=== PATIENT | female | born 1945 | race Caucasian/White ===

== ENCOUNTER 2017-05-16 18:20 | Emergency (ER) | payer BC, OTHER ==
[2017-05-16 18:32] VITALS: BP 145/96; BMI 30.7
--- NOTE | 2017-05-16 18:48 | DR.GENAD ---
HPI - PCP Primary Care Physician: ESSENCE - HPI Comment HPI Comment: PATIENT IS HAVING HEADACHE, VOMITED TIMES ONE IN ED AND HAVING NECK AND PELVIS PAIN. - Complaint/Symptoms Chief Complaint Doctors Comments: HISTORY BELOW. NO LOC. Chief Complaint:: PATIENT WAS AT [employer] AND WENT TO OPEN HER CAR DOOR BUT IT WAS ALREADY OPEN AND LOST HER BALANCE AND FELL AND HIT THE BACK OF HER HEAD. PATIENT IS COMPLAINING OF HEAD AND NECK PAIN. - Nurses notes reviewed Nurses Notes Review: Yes - Source History Provided: Patient - Mode of Arrival Mode of Arrival: EMS - Timing Onset of Chief Complaint: 05/16/17 Came on: Suddenly - Duration Duration: Constant Duration: Days - Severity Severity: Moderate PMH - PMH Past Medical History: Yes Past Medical History: CVA, Diabetes, Dyslipidemia Past Surgical History: Yes Surgical History: Hysterectomy - Family History History of Family Medical Conditions: No - Social History Does patient currently use any type of tobacco product: No Have you used tobacco products in the last 12 months: No Type of Tobacco Use: None Does any household member use tobacco: No Alcohol Use: None Do you use any recreational Drugs:: No Lives With: Family Lives Where: Home - infectious screening In the last 2 months have you had wt loss of >10#?: NO Have you had fever, night sweats or hemotysis?: No Have you traveled outside the country in the last 6 months?: No Isolation: Standard ROS - Review of Systems Constitutional: No Symptoms Reported Eyes: No Symptoms Reported ENTM: No Symptoms Reported Respiratoy: No Symptoms Reported Cardiovascular: No Symptoms Reported Gastrointestinal/Abdominal: No Symptoms Reported Genitourinary: No Symptoms Reported Neurological: Headache Musculoskeletal: Neck Pain, Pelvis Integumentary: No Symptoms Reported Hematologic/Lymphatic: No Symptoms Reported Endocrine: No Symptoms Reported All Other Systems: Reviewed and Negative PE - Vital Signs Vitals: Pulse Rate 72 Respiratory Rate 20 Blood Pressure 145/96 O2 Sat by Pulse Oximetry 100 - General Limitations: No Limitations General Appearance: Alert - Head Head Exam: Normal Inspection - Eyes Eye exam: Normal Appearance - ENT ENT Exam: Normal External Ear Exam External Ear Exam: Normal External Inspection Nose Exam: Normal Nose Exam Mouth Exam: Normal Inspection Throat Exam: Normal Inspection - Neck Neck Exam: Normal Inspection - Chest Chest Inspection: Symmetric Chest Wall Rise - Respiratory Respiratory Exam: Normal Lung Sounds Bilat Respiratory Exam: Bilateral Clear to Auscultation - Cardiovascular Cardiovascular Exam: Regular Rate, Normal Rhythm, Normal Heart Sounds - Abdominal Exam Abdominal Exam: Normal Bowel Sounds, Soft. negative: Tenderness - Extremities Extremities Exam: Other (POSTERIOR PELVIC TENDERNESS.) - Back Back Exam: Normal Inspection - Neurologic Neurological Exam: Alert, Oriented X3 - Psychiatric Psychiatric Exam: Anxious - Skin Skin Exam: Normal Color MDM - Differential Diagnosis Differential Diagnosis: CLOSE HEAD INJURY, CERVICAL SPRAIN, CONTUSION, STRAIN, FRACTURE Course - Treatment Treatment: SEE ORDERS. - Education/Counseling Education/Counseling: Patient, Education Educated On: Treatment, Diagnosis, Needs for Follow Up ROR - XRAY XRAY Interpreted by: Radiologist XRAY Findings: REPORT DISCUSS WITH PATIENT. - Diagnosis Discharge Problem: Cervical strain, acute, Head trauma, Pelvic pain - Discharge Plan Condition: Stable Prescriptions: Acetaminophen with Codeine [Tylenol/Codeine #3 300-30 mg] 1 tab PO Q8H PRN #12 tab PRN Reason: Pain Cyclobenzaprine HCl [FLEXERIL 10 MG *] 10 mg PO TID PRN #15 tab PRN Reason: - Follow ups/Referrals Follow ups/Referrals: Kristopher Soliman [Primary Care Provider] - 3 days - Instructions Instructions: Cervical Strain and Sprain With Rehab-SportsMed, Headache and Arthritis, Musculoskeletal Pain
[2017-05-16] MEDS ORDERED: ZOFRAN INJ 4 MG VIAL ONE (19:10)
[2017-05-16] MEDS ORDERED: ZOFRAN INJ 4 MG VIAL IVP ONE (19:23)
[2017-05-16] MEDS ORDERED: TORADOL 30 MG VIAL IVP ONE (19:33)
[2017-05-16] MEDS ORDERED: TORADOL 30 MG VIAL ONE (19:38)
== END 2017-05-16 20:53 | disposition home or self-care (01) ==
LOC: ER 18:35
DX: S13.4XXA Sprain of ligaments of cervical spine, initial encounter (principal); S09.8XXA Other specified injuries of head, initial encounter; R10.2 Pelvic and perineal pain; W19.XXXA Unspecified fall, initial encounter; Y92.89 Other specified places as the place of occurrence of the external cause
CPT/HCPCS: 70450; 72125; 72192; 96365; 96374; 96375; 99283; A4222; J1885; J2405

== ENCOUNTER 2017-10-24 21:16 | Emergency (ER) | payer OTHER ==
[2017-10-24 21:23] VITALS: BMI 30.7
--- NOTE | 2017-10-24 22:05 | DR.GENAD ---
HPI - PCP Primary Care Physician: VEDA MARTIN - HPI Comment HPI Comment: HEADACHE AND BACK PAIN. PATIENT ON ANTICOAGULATION MEDICATION. NO LOC. NECK IS HURTING. - Complaint/Symptoms Chief Complaint Doctors Comments: HOANG. HIT HER HEAD AND LANDED ON BACK. Chief Complaint:: FELL AT HOME HIT HEAD - Nurses notes reviewed Nurses Notes Review: Yes - Source History Provided: Patient - Mode of Arrival Mode of Arrival: Wheelchair - Timing Onset of Chief Complaint: 10/24/17 Came on: Suddenly - Duration Duration: Constant Duration: Weeks - Severity Severity: Moderate PMH - PMH Past Medical History: Yes Past Medical History: Coronary Artery Disease, CVA, Diabetes, Dyslipidemia, Hypertension, Hypothyroidism Past Surgical History: Yes Surgical History: Appendectomy, Cholecystectomy, Hysterectomy, Joint Replacement Past Surgical History Comment: DEFIBRILLATOR - Family History History of Family Medical Conditions: No - Social History Does patient currently use any type of tobacco product: No Have you used tobacco products in the last 12 months: No Type of Tobacco Use: None Does any household member use tobacco: No Alcohol Use: None Do you use any recreational Drugs:: No Lives With: Family Lives Where: Home - infectious screening In the last 2 months have you had wt loss of >10#?: NO Have you had fever, night sweats or hemotysis?: No Have you traveled outside the country in the last 6 months?: No Isolation: Standard ROS - Review of Systems Constitutional: No Symptoms Reported, Other (OCCIPITAL HEMATOMA.) Eyes: No Symptoms Reported ENTM: No Symptoms Reported Respiratoy: Short of Breath. negative: Productive Cough, Wheezing, Hemoptysis Cardiovascular: Edema. negative: Chest Pain Gastrointestinal/Abdominal: No Symptoms Reported Genitourinary: No Symptoms Reported Neurological: Headache, Dizziness Musculoskeletal: Back Pain, Muscle Pain, Neck Pain Integumentary: No Symptoms Reported Hematologic/Lymphatic: No Symptoms Reported Endocrine: No Symptoms Reported All Other Systems: Reviewed and Negative PE - Vital Signs Vitals: Temperature 98.1 F Pulse Rate [Left Brachial] 70 Pulse Rate 70 Respiratory Rate 18 Blood Pressure [Left Arm] 125/58 Blood Pressure 175/77 O2 Sat by Pulse Oximetry 98 - General Limitations: No Limitations General Appearance: Alert - Head Head Exam: Other (OCCIPITAL HEMATOMA.) - Eyes Eye exam: Normal Appearance - ENT ENT Exam: Normal External Ear Exam External Ear Exam: Normal External Inspection TM/Canal Exam: Bilateral Normal Nose Exam: Normal Nose Exam Mouth Exam: Normal Inspection Throat Exam: Normal Inspection - Neck Neck Exam: Trachea Midline, Tenderness - Chest Chest Inspection: Symmetric Chest Wall Rise - Respiratory Respiratory Exam: Normal Lung Sounds Bilat Respiratory Exam: Bilateral Rhonchi, Lower Rhonchi - Cardiovascular Cardiovascular Exam: Regular Rate, Normal Rhythm, Normal Heart Sounds - Abdominal Exam Abdominal Exam: Normal Bowel Sounds, Soft - Extremities Extremities Exam: Normal Inspection - Back Back Exam: Vertebral Tenderness (UPPER AND LOWER BACK.) - Neurologic Neurological Exam: Alert, Oriented X3. negative: Motor Sensory Deficit - Psychiatric Psychiatric Exam: Normal Affect, Normal Mood - Skin Skin Exam: Normal Color [facility] - Additional Information Additional Information Obtained From: Family - Differential Diagnosis Differential Diagnosis: BACK PAIN, CERVICAL STRAIN AND SPRAIN, CLOSE HEAD INJUR , OCCIPITAL HEMATOMA Course - Treatment Treatment: SEE ORDERS. IM PAIN MED IN ED. - Reevaluation 1st: Improved - Education/Counseling Education/Counseling: Patient, Family, Education Educated On: Treatment, Diagnosis, Needs for Follow Up ROR - Labs Reviewed Laboratory Results Reviewed?: Yes Result Diagrams: 10/24/17 22:25 10/24/17 22:25 Laboratory: WBC 8.3 X10^3/uL (3.6-10.0) 10/24/17 22:25 RBC 3.70 X10^6/uL (3.5-5.4) 10/24/17 22:25 Hgb 11.5 g/dL (12.0-16.0) L 10/24/17 22:25 Hct 33.3 % (36.0-47.0) L 10/24/17 22:25 MCV 90.1 fL (80.0-100.0) 10/24/17 22:25 MCH 31.0 pg (27.0-34.0) 10/24/17 22:25 MCHC 34.4 g/dL (33.0-35.0) 10/24/17 22:25 RDW 14.6 % (11.6-16.5) 10/24/17 22:25 Plt Count 263 X10^3/uL (150.0-450.0) 10/24/17 22:25 MPV 7.4 fL (7.4-11.0) 10/24/17 22:25 Neut % (Auto) 59.5 % (42.0-75.0) 10/24/17 22:25 Lymph % (Auto) 29.2 % (21.0-51.0) 10/24/17 22:25 [place] % (Auto) 7.6 % (0.0-13.0) 10/24/17 22:25 Eos % (Auto) 2.1 % (0.9-2.9) 10/24/17 22:25 Baso % (Auto) 1.6 % (0.2-1.0) H 10/24/17:25 Neut # (Auto) 4.9 x10^3/uL (2.2-4.8) H 10/24/17 22:25 Lymph # (Auto) 2.4 X10^3/uL (1.3-2.9) 10/24/17:25 [place] # (Auto) 0.6 x10^3/uL (0.3-0.8) 10/24/17 22:25 Eos # (Auto) 0.2 x10^3/uL (0.0-0.2) 10/24/17:25 Baso # (Auto) 0.1 X10^3/uL (0.0-0.1) 10/24/17:25 Absolute Nucleated RBC 0.0 /100WBC 10/24/17 22:25 Sodium 140 mmol/L (136-145) 10/24/17 22:25 Corrected Sodium 142 mmol/L (136-145) 10/24/17 22:25 Potassium 5.0 mmol/L (3.5-5.1) 10/24/17 22:25 Chloride 106 mmol/L (98-107) 10/24/17 22:25 Carbon Dioxide 27.3 mmol/L (21-32) 10/24/17 22:25 BUN 28 mg/dL (7-18) H 10/24/17 22:25 Creatinine 1.18 mg/dL (0.55-1.02) H 10/24/17 22:25 Est GFR (MDRD) Af Amer 58 (>60) L 10/24/17 22:25 Est GFR (MDRD) Non-Af 48 (>60) L 10/24/17 22:25 Glucose 172 mg/dL (65-99) H 03/15/18 22:25 Calcium 8.4 mg/dL (8.5-10.1) L 10/24/17 22:25 Corrected Calcium TNP 10/24/17 22:25 Total Bilirubin 0.50 mg/dL (0.2-1.0) 10/24/17 22:25 AST 13 Units/L (15-37) L 10/24/17 22:25 ALT 20 Units/L (12-78) 10/24/17 22:25 Alkaline Phosphatase 50 Units/L (46-116) 10/24/17 22:25 Total Protein 7.6 g/dL (6.4-8.2) 10/24/17 22:25 Albumin 3.7 g/dL (3.4-5.0) 10/24/17 22:25 Globulin 3.9 g/dL (2.5-4.5) 10/24/17 22:25 Albumin/Globulin Ratio 0.9 Ratio (1.1-2.1) L 10/24/17 22:25 - XRAY XRAY Interpreted by: Radiologist XRAY Findings: REPORT DISCUSS WITH PATIENT. - Diagnosis Discharge Problem: Back pain, Neck pain, Scalp pain, Scalp hematoma Scalp contusion Qualifiers: Encounter type: initial encounter Qualified Code(s): S00.03XA - Contusion of scalp, initial encounter - Discharge Plan Disposition: 01 HOME, SELF-CARE Condition: Stable - Follow ups/Referrals Follow ups/Referrals: NFD,None [Primary Care Provider] - 3 days - Instructions Instructions: Facial or Scalp Contusion, [id number], Cervical Strain and Sprain Rehab-SportsMed, Musculoskeletal Pain, Back Pain, Adult, [id number], Hematoma, [id number] Additional Instructions: RETURN TO ED IF WORSE.
[2017-10-24] MEDS ORDERED: DEMEROL INJ IM ONE (22:17)
[2017-10-24] MEDS ORDERED: ZOFRAN INJ 4 MG VIAL IVP ONE (22:17)
[2017-10-24 22:35] LABS: BASOPHILS # (AUTO) 0.1 X10^3/uL (0.0-0.1); BASOPHILS % (AUTO) 1.6 % (0.2-1.0); EOSINOPHILS # (AUTO) 0.2 x10^3/uL (0.0-0.2); EOSINOPHILS % (AUTO) 2.1 % (0.9-2.9); HEMATOCRIT 33.3 % (36.0-47.0); HEMOGLOBIN 11.5 g/dL (12.0-16.0); LYMPHOCYTES # (AUTO) 2.4 X10^3/uL (1.3-2.9); LYMPHOCYTES % (AUTO) 29.2 % (21.0-51.0); MEAN CORPUSCULAR HGB CONC 34.4 g/dL (33.0-35.0); MEAN CORPUSCULAR VOLUME 90.1 fL (80.0-100.0); MEAN PLATELET VOLUME 7.4 fL (7.4-11.0); MONOCYTES # (AUTO) 0.6 x10^3/uL (0.3-0.8); MONOCYTES % (AUTO) 7.6 % (0.0-13.0); NEUTROPHILS # (AUTO) 4.9 x10^3/uL (2.2-4.8); NEUTROPHILS % (AUTO) 59.5 % (42.0-75.0); PLATELET COUNT 263 X10^3/uL (150.0-450.0); RED CELL DISTRIBUTION WIDTH 14.6 % (11.6-16.5); WHITE BLOOD COUNT 8.3 X10^3/uL (3.6-10.0)
[2017-10-24 22:47] LABS: ALANINE AMINOTRANSFERASE 20 Units/L (12-78); ALBUMIN 3.7 g/dL (3.4-5.0); ALKALINE PHOSPHATASE 50 Units/L (46-116); ASPARTATE AMINO TRANSFERASE 13 Units/L (15-37); BLOOD UREA NITROGEN 28 mg/dL (7-18); CALCIUM 8.4 mg/dL (8.5-10.1); CARBON DIOXIDE 27.3 mmol/L (21-32); CHLORIDE 106 mmol/L (98-107); COR NA(FOR HYPERGLY) 142 mmol/L (136-145); CREATININE 1.18 mg/dL (0.55-1.02); SODIUM 140 mmol/L (136-145); TOTAL PROTEIN 7.6 g/dL (6.4-8.2); eGFR BLACK RACES 58 (>60); eGFR NON BLACK RACES 48 (>60)
--- NOTE | 2017-10-24 22:56 | CT ---
HISTORY: Fall, neck pain Study: CT cervical spine without contrast Comparison: 05/16/2017 Technique: Multiple axial images of the cervical spine were obtained from the skull base to the thora cic inlet without administration of IV contrast. Sagittal and coronal reformats were performed and r eviewed. Dose reduction techniques including Automated Exposure Control (AEC) and adjustment of mA an d kV were utilized. Findings: There is reversal of normal cervical lordosis. Vertebral body heights are preserved. Multilevel spond ylosis and degenerative disc space narrowing is present. The posterior elements are intact. No evide nce of acute fracture or dislocation. The odontoid process and occipital condyles are intact Atherosclerotic calcifications are seen in the right carotid bulb. The visualized lung apices are mike ar. IMPRESSION: 1. Cervical degenerative changes without acute osseous abnormality. Reported By:
--- NOTE | 2017-10-24 22:58 | CT ---
HISTORY: Fall, pain Study: CT brain without contrast Comparison: 05/16/2017 Technique: Multiple axial images of the brain were obtained from the skull base to the vertex without administra tion of IV contrast. Dose reduction techniques including Automated Exposure Control (AEC) and adjust ment of mA and kV were utilized. Findings: There is atrophy and nonspecific white matter hypoattenuation likely related to microvascular ischemi c changes. No evidence of acute hemorrhage, midline shift, mass effect or abnormal extra-axial fluid collection. The ventricular system is symmetric and nondilated. There is a hematoma posterior maycol etal scalp. No calvarial fracture is identified. There is chronic opacification of the right maxillar y sinus. IMPRESSION: 1. Posterior parietal scalp hematoma. No calvarial fracture or acute intracranial abnormality identif ied. Reported By:
--- NOTE | 2017-10-24 23:01 | CT ---
HISTORY: Pain after fall Study: CT thoracic spine without contrast Comparison: None Technique: Multiple axial images of the thoracic spine were obtained. Sagittal and coronal reconstru ctions were performed and reviewed. Dose reduction techniques including Automated Exposure Control ( AEC) and adjustment of mA and kV were utilized. Findings: Normal alignment of the thoracic spine is maintained. Vertebral body heights are preserved. Multile martinez spondylosis is present. The posterior elements and central canal appear unremarkable. No signific ant paraspinal soft tissue injury can be identified. Cardiomegaly is noted with coronary atherosclero tic disease and pacemaker leads in place. Incidental note is made of a hypodense left adrenal lesion likely representing an adenoma. IMPRESSION: 1.No acute osseous abnormality of the thoracic spine. Reported By:
--- NOTE | 2017-10-24 23:04 | CT ---
HISTORY: Pain after fall Study: CT lumbar spine without contrast Comparison: None Technique: Multiple axial images of the lumbar spine without the administration of IV contrast. Sag ittal and coronal reformats were performed and reviewed. Dose reduction techniques including Automat ed Exposure Control (AEC) and adjustment of mA and kV were utilized. Findings: Alignment of the lumbar spine is maintained. No evidence for acute fracture or subluxation identifie d. Vertebral body heights are preserved. Multilevel spondylosis is present with preservation of the disc spaces.Posterior elements appear intact. There is a hypodense left adrenal nodule most compatib le with an adenoma. The surrounding soft tissues appear intact. The uterus is removed. There are punc dougherty nonobstructing bilateral renal calculi. IMPRESSION: 1.No osseous abnormality of the lumbar spine. Reported By:
[2017-10-24] MEDS ORDERED: DEMEROL INJ ONE (23:13)
[2017-10-24] MEDS ORDERED: ZOFRAN INJ 4 MG VIAL ONE (23:13)
[2017-10-24] MEDS ORDERED: ZOFRAN INJ 4 MG VIAL IM ONE (23:20)
[2017-10-24 23:41] VITALS: BP 125/58
== END 2017-10-24 23:42 | disposition home or self-care (01) ==
LOC: ER 21:29
DX: S00.03XA Contusion of scalp, initial encounter (principal); M54.89 Other dorsalgia; M54.2 Cervicalgia; R51 Headache; W19.XXXA Unspecified fall, initial encounter; Y92.009 Unspecified place in unspecified non-institutional (private) residence as the place of occurrence of the external cause
CPT/HCPCS: 36415; 70450; 72125; 72128; 72131; 80053; 85025; 96372; 99283; 99285; J2175; J2405

== ENCOUNTER 2024-12-05 11:46 | Observation (INO) ==
--- NOTE | 2024-12-05 12:22 | DR.URIAD ---
HPI Time Seen Time Seen by Provider: 12/05/24 12:10 PCP Primary Care Physician: Rina Knutson HPI Comment HPI Comment: History as below. Complaint Chief Complaint Doctors Comments: Patient is 79yr old female in ER with coughing and URI symptoms times 4 days. Chief Complaint:: Pt c/o yellow productive cough, hoarseness, weakness, chest congestion and pain that she says is "all the time" and radiates around to her back. Increasing SOB at rest and w/ exertion. She states she has been having to use her O2 at home at bedtime more frequently d/t SOB. Pt c/o headache; denies n/v/d, denies abdominal pain, denies fever. Self Treatment fo Chief Complaint: PCP ofc this week, was given rocephin, B12 and steriod IM in office. O2 at 2L HS and PRN. COVID-19 Coronavirus risk:travel/contact w/high risk person: No Has patient experienced Coronavirus symptoms: Yes Coronavirus symptoms experienced: Coughing and Shortness of Breath Reviewed Nurses Notes Reviewed: Yes Source History Provided: Patient Mode of Arrival Mode of Arrival: Ambulatory Timing Onset of Chief Complaint: 12/01/24 Quality Shortness of Breath: Moderate PMH PMH Past Medical History: Yes Past Medical History: CHF, COPD, Coronary Artery Disease, Diabetes, Dyslipidemia, Hypertension and Hypothyroidism Past Surgical History: Yes Surgical History: Angioplasty/Stents, Cholecystectomy, Hysterectomy and Ortho Surgery Family History History of Family Medical Conditions: Yes Family Medical History: Diabetes Mellitus, Cancer, Coronary Artery Disease and Hypertension Social History Does patient currently use any type of tobacco product: Yes Have you used tobacco products in the last 12 months: Yes Type of Tobacco Use: Cigarettes Does any household member use tobacco: Yes Alcohol Use: None Do you use any recreational Drugs:: No Lives With: Family Lives Where: Home Travel Risk Coronavirus risk:travel/contact w/high risk person: No Has patient experienced Coronavirus symptoms: Yes Coronavirus symptoms experienced: Coughing and Shortness of Breath Infectious screening In the last 2 months have you had wt loss of >10#?: NO Have you had fever, night sweats or hemotysis?: No Have you traveled outside the country in the last 6 months?: No Isolation: Droplet PE Vital Signs Vitals: Vital Signs Temperature 98.6 F Pulse Rate 94 Respiratory Rate 18 Blood Pressure 136/65 O2 Sat by Pulse Oximetry 93 ROR Labs Reviewed 12/05/24 12:46 12/05/24 12:46 Laboratory: WBC 6.6 X10^3/uL (3.6-10.0) 12/05/24 12:46 RBC 3.25 X10^6/uL (3.5-5.4) L 12/05/24 12:46 Hgb 9.8 g/dL (12.0-16.0) L 12/05/24 12:46 Hct 28.8 % (36.0-47.0) L 12/05/24 12:46 MCV 88.5 fL (80.0-100.0) 12/05/24 12:46 MCH 30.0 pg (27.0-34.0) 12/05/24 12:46 MCHC 33.9 g/dL (33.0-35.0) 12/05/24 12:46 RDW 14.7 % (11.6-16.5) 12/05/24 12:46 Plt Count 239 X10^3/uL (150.0-450.0) 12/05/24 12:46 MPV 7.3 fL (7.4-11.0) L 12/05/24 12:46 Neut % (Auto) 58.7 % (42.0-75.0) 12/05/24 12:46 Lymph % (Auto) 20.9 % (21.0-51.0) L 12/05/24 12:46 [place] % (Auto) 11.7 % (0.0-13.0) 12/05/24 12:46 Eos % (Auto) 7.8 % (0.9-2.9) H 12/05/24 12:46 Baso % (Auto) 0.9 % (0.2-1.0) 12/05/24 12:46 Neut # (Auto) 3.8 x10^3/uL (2.2-4.8) 12/05/24 12:46 Lymph # (Auto) 1.4 X10^3/uL (1.3-2.9) 12/05/24 12:46 [place] # (Auto) 0.8 x10^3/uL (0.3-0.8) 12/05/24 12:46 Eos # (Auto) 0.5 x10^3/uL (0.0-0.2) H 12/05/24 12:46 Baso # (Auto) 0.1 X10^3/uL (0.0-0.1) 12/05/24 12:46 Absolute Nucleated RBC 0.0 /100WBC 12/05/24 12:46 Sodium 141 mmol/L (136-145) 12/05/24 12:46 Corrected Sodium 141 mmol/L (136-145) 12/05/24 12:46 Potassium 4.6 mmol/L (3.5-5.1) 12/05/24 12:46 Chloride 106 mmol/L (98-107) 12/05/24 12:46 Carbon Dioxide 28.6 mmol/L (21-32) 12/05/24 12:46 BUN 17 mg/dL (7-18) 12/05/24 12:46 Creatinine 0.92 mg/dL (0.55-1.02) 12/05/24 12:46 Est GFR (MDRD) Af Amer > 60 (>60) 12/05/24 12:46 Est GFR (MDRD) Non-Af > 60 (>60) 12/05/24 12:46 Glucose 116 mg/dL (65-99) H 12/05/24 12:46 Calcium 9.3 mg/dL (8.5-10.1) 12/05/24 12:46 Corrected Calcium 9.9 mg/dL (8.5-10.1) 12/05/24 12:46 Total Bilirubin 1.00 mg/dL (0.2-1.0) 12/05/24 12:46 AST 22 Units/L (15-37) 12/05/24 12:46 ALT 30 Units/L (12-78) 12/05/24 12:46 Alkaline Phosphatase 63 Units/L (46-116) 12/05/24 12:46 Creatine Kinase 23 Units/L (26-192) L 12/05/24 12:46 Troponin I High Sens 26.5 ng/L (4.0-60.0) 12/05/24 12:46 B-Natriuretic Peptide 551 pg/mL (0-79) H 12/05/24 12:46 Total Protein 6.9 g/dL (6.4-8.2) 12/05/24 12:46 Albumin 3.3 g/dL (3.4-5.0) L 12/05/24 12:46 Globulin 3.6 g/dL (2.5-4.5) 12/05/24 12:46 Albumin/Globulin Ratio 0.9 Ratio (1.1-2.1) L 12/05/24 12:46 SARS-CoV-2 (PCR) Negative (NEGATIVE) 12/05/24 12:21 Influenza Type A (PCR) Negative (NEGATIVE) 12/05/24 12:21 Influenza Type B (PCR) Negative (NEGATIVE) 12/05/24 12:21 RSV (PCR) Negative (NEGATIVE) 12/05/24 12:21 Opioid Opioid Risk Tool Age (Andrzej box if 16-45): No History of Preadolescent Sexual Abuse: No Total: 0 Total Score Risk Category: Low Risk Copyright: Ervin MORGAN predicting aberrant behaviors Discharge Plan Diagnosis Discharge Problem: Bronchitis, SOB (shortness of breath) Edema Qualifiers: Edema type: localized Qualified Code(s): R60.0 - Localized edema CHF (congestive heart failure) Qualifiers: Heart failure type: combined systolic and diastolic Heart failure chronicity: acute on chronic Qualified Code(s): I50.43 - Acute on chronic combined systolic (congestive) and diastolic (congestive) heart failure Discharge Plan Patient Disposition: 09 ADMITTED INPATIENT Condition: Stable Orders to Discharge Patient Discharge Orders: Transfer (Routine); Ordered 12/05/24 Ordered By: ROMARIO CARROLL
--- NOTE | 2024-12-05 12:39 | EKG ---
Test Reason : CHEST PAIN Blood Pressure : */* mmHG Vent. Rate : 86 BPM Atrial Rate : 86 BPM P-R Int : 162 ms QRS Dur : 106 ms QT Int : 372 ms P-R-T Axes : 56 165 127 degrees QTc Int : 445 ms Atrial-sensed ventricular-paced rhythm Abnormal ECG No previous ECGs available Confirmed by Yo Go MD ([id number]) on 12/06/2024 6:39:09 AM Referred By: Confirmed By: Yo Go MD
[2024-12-05 13:31] LABS: BASOPHILS # (AUTO) 0.1 X10^3/uL (0.0-0.1); BASOPHILS % (AUTO) 0.9 % (0.2-1.0); EOSINOPHILS # (AUTO) 0.5 x10^3/uL (0.0-0.2); EOSINOPHILS % (AUTO) 7.8 % (0.9-2.9); HEMATOCRIT 28.8 % (36.0-47.0); HEMOGLOBIN 9.8 g/dL (12.0-16.0); LYMPHOCYTES # (AUTO) 1.4 X10^3/uL (1.3-2.9); LYMPHOCYTES % (AUTO) 20.9 % (21.0-51.0); MEAN CORPUSCULAR HGB CONC 33.9 g/dL (33.0-35.0); MEAN CORPUSCULAR VOLUME 88.5 fL (80.0-100.0); MEAN PLATELET VOLUME 7.3 fL (7.4-11.0); MONOCYTES # (AUTO) 0.8 x10^3/uL (0.3-0.8); MONOCYTES % (AUTO) 11.7 % (0.0-13.0); NEUTROPHILS # (AUTO) 3.8 x10^3/uL (2.2-4.8); NEUTROPHILS % (AUTO) 58.7 % (42.0-75.0); PLATELET COUNT 239 X10^3/uL (150.0-450.0); RED BLOOD COUNT 3.25 X10^6/uL (3.5-5.4); RED CELL DISTRIBUTION WIDTH 14.7 % (11.6-16.5); WHITE BLOOD COUNT 6.6 X10^3/uL (3.6-10.0)
[2024-12-05 13:48] LABS: ALANINE AMINOTRANSFERASE 30 Units/L (12-78); ALBUMIN 3.3 g/dL (3.4-5.0); ALKALINE PHOSPHATASE 63 Units/L (46-116); ASPARTATE AMINO TRANSFERASE 22 Units/L (15-37); BLOOD UREA NITROGEN 17 mg/dL (7-18); CALCIUM 9.3 mg/dL (8.5-10.1); CARBON DIOXIDE 28.6 mmol/L (21-32); CHLORIDE 106 mmol/L (98-107); COR CA(FOR HYPOALB) 9.9 mg/dL (8.5-10.1); COR NA(FOR HYPERGLY) 141 mmol/L (136-145); CREATINE KINASE 23 Units/L (26-192); CREATININE 0.92 mg/dL (0.55-1.02); GLUCOSE 116 mg/dL (65-99); POTASSIUM 4.6 mmol/L (3.5-5.1); SODIUM 141 mmol/L (136-145); TOTAL PROTEIN 6.9 g/dL (6.4-8.2); eGFR NON BLACK RACES > 60 (>60)
[2024-12-05] MEDS: LASIX IVP ONE (15:51)
[2024-12-05] MEDS: ROCEPHIN VIAL 1 GRAM IVP ONE (15:54)
[2024-12-05] MEDS: ROCEPHIN VIAL 1 GRAM 1 G in NS 100 ML IV 100 ML IV ONE (15:55)
--- NOTE | 2024-12-05 16:59 | RAD ---
EXAM:FRONTAL VIEW CHEST X-RAYHISTORY:cough, SOB;COMPARISON:10/18/2022FINDINGS:Implan table cardiac device is again seen without evidence of lead wire fractures.New focus of airspace disease is seen in the right lower lung zone which was not present on the prior exam and therefore would be classified as acute airspace disease such as infection.The heart size is magnified on this portable technique and without radiographic evidence of pulmonary edema.The mediastinum is unremarkable.There is no evidence of pleural effusion or gross pneumothorax.The trachea is midline.IMPRESSION:1. Implantable cardiac device is again seen without evidence of lead wire fractures.2. New focus of airspace disease is seen in the right lower lung zone which was not present on the prior exam and therefore would be classified as acute airspace disease such as infection.THIS IS AN ELECTRONICALLY VERIFIED FINAL REPORT12/05/2024 4:55 PM - Electronically signed by Orlando Leal MD
[2024-12-05] MEDS: LASIX ONE (17:02)
[2024-12-05] MEDS: ROCEPHIN VIAL 1 GRAM ONE (17:03)
[2024-12-05 17:22] VITALS: BMI 30.2
[2024-12-05] MEDS: COREG TAB 6.25 MG PO SCH (20:33)
[2024-12-05] MEDS: DESYREL PO SCH (20:34)
[2024-12-06 06:16] LABS: BASOPHILS % (AUTO) 0.1 % (0.2-1.0); EOSINOPHILS # (AUTO) 0.3 x10^3/uL (0.0-0.2); EOSINOPHILS % (AUTO) 7.6 % (0.9-2.9); HEMATOCRIT 27.5 % (36.0-47.0); HEMOGLOBIN 9.4 g/dL (12.0-16.0); LYMPHOCYTES # (AUTO) 1.1 X10^3/uL (1.3-2.9); LYMPHOCYTES % (AUTO) 23.9 % (21.0-51.0); MEAN CORPUSCULAR HEMOGLOBIN 30.3 pg (27.0-34.0); MEAN CORPUSCULAR HGB CONC 34.2 g/dL (33.0-35.0); MEAN CORPUSCULAR VOLUME 88.4 fL (80.0-100.0); MEAN PLATELET VOLUME 7.5 fL (7.4-11.0); MONOCYTES # (AUTO) 0.4 x10^3/uL (0.3-0.8); MONOCYTES % (AUTO) 8.6 % (0.0-13.0); NEUTROPHILS # (AUTO) 2.8 x10^3/uL (2.2-4.8); NEUTROPHILS % (AUTO) 59.8 % (42.0-75.0); PLATELET COUNT 207 X10^3/uL (150.0-450.0); RED BLOOD COUNT 3.11 X10^6/uL (3.5-5.4); RED CELL DISTRIBUTION WIDTH 14.6 % (11.6-16.5); WHITE BLOOD COUNT 4.6 X10^3/uL (3.6-10.0)
[2024-12-06 06:29] LABS: ALANINE AMINOTRANSFERASE 24 Units/L (12-78); ALBUMIN 3.1 g/dL (3.4-5.0); ALKALINE PHOSPHATASE 57 Units/L (46-116); ASPARTATE AMINO TRANSFERASE 17 Units/L (15-37); BLOOD UREA NITROGEN 19 mg/dL (7-18); CALCIUM 9.3 mg/dL (8.5-10.1); CARBON DIOXIDE 31.9 mmol/L (21-32); CHLORIDE 103 mmol/L (98-107); CREATININE 1.02 mg/dL (0.55-1.02); GLUCOSE 84 mg/dL (65-99); MAGNESIUM 1.8 mg/dL (2.0-2.9); POTASSIUM 3.9 mmol/L (3.5-5.1); SODIUM 142 mmol/L (136-145); TOTAL PROTEIN 6.5 g/dL (6.4-8.2); eGFR NON BLACK RACES 56 (>60)
[2024-12-06] MEDS ORDERED: [UNRECOGNIZED DRUG - OTHER] PO SCH (09:00)
[2024-12-06] MEDS: SYNTHROID 75 mcg TAB PO SCH (09:37)
[2024-12-06] MEDS: ZYLOPRIM PO SCH (09:37)
[2024-12-06] MEDS: LIPITOR TAB 20 MG PO SCH (09:37)
[2024-12-06] MEDS: NS 250 ML IV 250 ML IV PRN (09:37)
[2024-12-06] MEDS: ROCEPHIN VIAL 1 GRAM 1 G in NS 100 ML IV 100 ML IV SCH (09:37)
[2024-12-06] MEDS: KLOR-CON 10 MEQ TAB PO SCH (09:37)
[2024-12-06] MEDS: LASIX IVP SCH (09:37)
[2024-12-06] MEDS: PLAVIX PO SCH (09:37)
--- NOTE | 2024-12-06 11:43 | DR.H&P ---
H&P History & Physical for Day of: H&P Date: 12/06/24 Chief Complaint Chief Complaint: Cough and shortness of breath History of Present Illness History of Present Illness: Ms. Brian is a 79-year-old female with a past medical history of hypertension, hyperlipidemia, CHF, CAD, AICD placement, type 2 diabetes presented with worsening shortness of breath. In the ER she was noted to have elevated BNP 551, negative troponin. Chest x-ray was concerning for infection. COVID, flu and RSV were negative. She did have lower extremity edema. She was started on IV Lasix and antibiotics. She was admitted for further evaluation. She is feeling better this morning. She continues to have productive cough. She is on room air. Labs/imaging reviewed: - WBC 4.6 hemoglobin 9.4 potassium 3.9 magnesium 1.8 creatinine 1.02 BNP 551 troponin negative - Chest x-ray reviewed Plan: Admit to [facility] with telemetry, continue IV Lasix. Monitor daily weight, I's and O's. Continue Rocephin, nebs and Pulmicort. Repeat chest x-ray in the a.m. Follow AIT results. Resume home medications. Replace electrolytes as per protocol. PT/OT as tolerated. Monitor a.m. labs and imaging. Past Medical History Past Medical History: CHF, COPD, Coronary Artery Disease, Diabetes, Dyslipidemia , Hypertension and Hypothyroidism Past Surgical History Surgical History: Angioplasty/Stents, Appendectomy, Cholecystectomy, Hysterectomy and Ortho Surgery Family History Family Medical History: Diabetes Mellitus, Cancer, Coronary Artery Disease and Hypertension Social History Does patient currently use any type of tobacco product: Yes Have you used tobacco products in the last 12 months: Yes Type of Tobacco Use: Cigarettes Does any household member use tobacco: Yes Alcohol Use: None Drug Use: None Medications Home Medications: Home Medications Medication Instructions Recorded Confirmed Type Spironolactone 25 mg PO DAILY 12/10/13 12/05/24 History allopurinol 300 mg tablet 300 mg PO DAILY 12/10/13 12/05/24 History atorvastatin 20 mg tablet 20 mg PO DAILY 12/10/13 12/05/24 History carvedilol 6.25 mg tablet 6.25 mg PO BID 12/10/13 12/05/24 History clopidogrel 75 mg tablet (Plavix) 75 mg PO DAILY 12/10/13 12/05/24 History furosemide 20 mg tablet (Lasix) 20 mg PO QDAY PRN 10/18/22 12/05/24 History spironolactone 25 mg tablet 25 mg PO QDAY 10/18/22 12/05/24 History trazodone 50 mg tablet 50 mg PO QHS 10/18/22 12/05/24 History aspirin 81 mg tablet 81 mg PO QDAY 12/05/24 12/05/24 History atorvastatin 20 mg tablet 20 mg PO HS 12/05/24 12/05/24 History cyclosporine 0.05 % eye drops in a 1 drp ophthalmic (eye) BID 12/05/24 12/05/24 History dropperette (Restasis) gabapentin 100 mg capsule 100 mg PO TID PRN 12/05/24 12/05/24 History levothyroxine 75 mcg tablet 75 mcg PO QDAY 12/05/24 12/05/24 History mupirocin 2 % topical ointment 1 applic topical TID 12/05/24 12/05/24 History potassium chloride 10 mEq 10 meq PO QDAY 12/05/24 12/05/24 History tablet,extended release(part/cryst) sacubitril 24 mg-valsartan 26 mg 0.5 tab PO QPM 12/05/24 12/05/24 History tablet (Entresto) semaglutide 0.25 mg or 0.5 mg (2 0.25 mg subcut QWEEK 12/05/24 12/05/24 History mg/3 mL) subcutaneous pen injector (Ozempic) Allergies Allergies Allergy/AdvReac Type Severity Reaction Status Date / Time ciprofloxacin Allergy Verified 12/05/24 12:18 rofecoxib Allergy Verified 12/05/24 12:18 Labs 12/06/24 05:28 12/06/24 05:28 Labs: Laboratory WBC 4.6 X10^3/uL (3.6-10.0) 12/06/24 05:28 RBC 3.11 X10^6/uL (3.5-5.4) L 12/06/24 05:28 Hgb 9.4 g/dL (12.0-16.0) L 12/06/24 05:28 Hct 27.5 % (36.0-47.0) L 12/06/24 05:28 MCV 88.4 fL (80.0-100.0) 12/06/24 05:28 MCH 30.3 pg (27.0-34.0) 12/06/24 05: MCHC 34.2 g/dL (33.0-35.0) 12/06/24 05:28 RDW 14.6 % (11.6-16.5) 12/06/24 05:28 Plt Count 207 X10^3/uL (150.0-450.0) 12/06/24 05:28 MPV 7.5 fL (7.4-11.0) 12/06/24 05:28 Neut % (Auto) 59.8 % (42.0-75.0) 12/06/24 05:28 Lymph % (Auto) 23.9 % (21.0-51.0) 12/06/24 05:28 [place] % (Auto) 8.6 % (0.0-13.0) 12/06/24 05:28 Eos % (Auto) 7.6 % (0.9-2.9) H 12/06/24 05:28 Baso % (Auto) 0.1 % (0.2-1.0) L 12/06/24 05:28 Neut # (Auto) 2.8 x10^3/uL (2.2-4.8) 12/06/24 05:28 Lymph # (Auto) 1.1 X10^3/uL (1.3-2.9) L 12/06/24 05:28 [place] # (Auto) 0.4 x10^3/uL (0.3-0.8) 12/06/24 05:28 Eos # (Auto) 0.3 x10^3/uL (0.0-0.2) H 12/06/24 05:28 Baso # (Auto) 0.0 X10^3/uL (0.0-0.1) 12/06/24 05:28 Absolute Nucleated RBC 0.0 /100WBC 12/06/24 05:28 Sodium 142 mmol/L (136-145) 12/06/24 05:28 Corrected Sodium TNP 12/06/24 05:28 Potassium 3.9 mmol/L (3.5-5.1) 12/06/24 05:28 Chloride 103 mmol/L (98-107) 12/06/24 05:28 Carbon Dioxide 31.9 mmol/L (21-32) 12/06/24 05:28 BUN 19 mg/dL (7-18) H 12/06/24 05:28 Creatinine 1.02 mg/dL (0.55-1.02) 12/06/24 05:28 Est GFR (MDRD) Af Amer > 60 (>60) 12/06/24 05:28 Est GFR (MDRD) Non-Af 56 (>60) L 12/06/24 05:28 Glucose 84 mg/dL (65-99) 12/06/24 05:28 POC Glucose (mg/dL) 91 mg/dL (65-99) 12/05/24 16:38 Calcium 9.3 mg/dL (8.5-10.1) 12/06/24 05:28 Corrected Calcium 10.0 mg/dL (8.5-10.1) 12/06/24 05:28 Magnesium 1.8 mg/dL (2.0-2.9) L 12/06/24 05:28 Total Bilirubin 1.00 mg/dL (0.2-1.0) 12/06/24 05:28 AST 17 Units/L (15-37) 12/06/24 05:28 ALT 24 Units/L (12-78) 12/06/24 05:28 Alkaline Phosphatase 57 Units/L (46-116) 12/06/24 05:28 Creatine Kinase 23 Units/L (26-192) L 12/05/24 12:46 Troponin I High Sens 26.5 ng/L (4.0-60.0) 12/05/24 12:46 B-Natriuretic Peptide 551 pg/mL (0-79) H 12/05/24 12:46 Total Protein 6.5 g/dL (6.4-8.2) 12/06/24 05:28 Albumin 3.1 g/dL (3.4-5.0) L 12/06/24 05:28 Globulin 3.4 g/dL (2.5-4.5) 12/06/24 05:28 Albumin/Globulin Ratio 0.9 Ratio (1.1-2.1) L 12/06/24 05:28 SARS-CoV-2 (PCR) Negative (NEGATIVE) 12/05/24 12:21 Influenza Type A (PCR) Negative (NEGATIVE) 12/05/24 12:21 Influenza Type B (PCR) Negative (NEGATIVE) 12/05/24 12:21 RSV (PCR) Negative (NEGATIVE) 12/05/24 12:21 Review of Systems Constitutional: Weakness Eyes: No Symptoms Reported ENT: No Symptoms Reported Respiratory: Cough, SOB with Excertion and Sputum Cardiovascular: Edema Gastrointestinal: No Symptoms Reported Genitourinary: No Symptoms Reported Musculoskeletal: No Symptoms Reported Skin: No Symptoms Reported Neurological: No Symptoms Reported Physical Exam Vital Signs: Vital Signs Temperature 97.8 F Temperature 97.7 F Pulse Rate [Right Brachial] 87 Pulse Rate [Right Brachial] 76 Respiratory Rate 22 Respiratory Rate 18 Blood Pressure [Left Arm] 121/60 Blood Pressure [Left Arm] 122/59 O2 Sat by Pulse Oximetry 94 O2 Sat by Pulse Oximetry 99 Oriented: Normal Throat: Normal Respiratory: Rhonchi Throughout and Rales Throughout Cardiovascular: Normal and Edema Auscultation: Bowel Sounds: Normal Palpation: Normal Tenderness: Normal Skin: Normal Musculoskeletal: Normal Psychiatric: Normal Mood Description: Calm Affect: Normal Speech Pattern: Clear and Appropriate Assessment/Plan (1) CHF exacerbation: Qualifiers: Heart failure type: unspecified Qualified Code(s): I50.9 - Heart failure, unspecified Status: Acute (2) Pneumonia: Qualifiers: Laterality: bilateral Lung location: unspecified part of lung Pneumonia type: due to unspecified organism Qualified Code(s): J18.9 - Pneumonia, unspecified organism Status: Acute (3) Hypomagnesemia: Status: Acute (4) HTN (hypertension): Qualifiers: Hypertension type: primary hypertension Qualified Code(s): I10 - Essential (primary) hypertension Status: Chronic (5) HLD (hyperlipidemia): Qualifiers: Hyperlipidemia type: mixed hyperlipidemia Qualified Code(s): E78.2 - Mixed hyperlipidemia Status: Chronic (6) Type 2 diabetes mellitus: Qualifiers: Diabetes mellitus complication status: without complication Diabetes mellitus long-term insulin use: without long-term use Qualified Code(s): E11.9 - Type 2 diabetes mellitus without complications Status: Chronic
[2024-12-06] MEDS: PULMICORT NEB TX 0.5 MG NEB SCH (11:50)
[2024-12-06] MEDS: DUONEB 0.5 MG/3 MG (3 mL) NEB SCH (13:17)
[2024-12-06] MEDS: SNACK - Diabetic Appropriate PO SCH (20:13)
[2024-12-06] MEDS: TUSSIONEX PENNKINETIC SUSP PO PRN (20:45)
[2024-12-06] MEDS: NEURONTIN CAP 100 MG PO PRN (20:45)
[2024-12-07 05:07] LABS: BASOPHILS # (AUTO) 0.1 X10^3/uL (0.0-0.1); BASOPHILS % (AUTO) 2.7 % (0.2-1.0); EOSINOPHILS # (AUTO) 0.5 x10^3/uL (0.0-0.2); EOSINOPHILS % (AUTO) 10.4 % (0.9-2.9); HEMATOCRIT 29.8 % (36.0-47.0); HEMOGLOBIN 10.3 g/dL (12.0-16.0); LYMPHOCYTES # (AUTO) 1.5 X10^3/uL (1.3-2.9); LYMPHOCYTES % (AUTO) 31.4 % (21.0-51.0); MEAN CORPUSCULAR HEMOGLOBIN 30.2 pg (27.0-34.0); MEAN CORPUSCULAR HGB CONC 34.5 g/dL (33.0-35.0); MEAN CORPUSCULAR VOLUME 87.5 fL (80.0-100.0); MEAN PLATELET VOLUME 7.2 fL (7.4-11.0); MONOCYTES # (AUTO) 0.7 x10^3/uL (0.3-0.8); MONOCYTES % (AUTO) 13.5 % (0.0-13.0); NEUTROPHILS # (AUTO) 2.1 x10^3/uL (2.2-4.8); PLATELET COUNT 229 X10^3/uL (150.0-450.0); WHITE BLOOD COUNT 4.9 X10^3/uL (3.6-10.0)
[2024-12-07 05:23] LABS: ALBUMIN 3.3 g/dL (3.4-5.0); CALCIUM 9.5 mg/dL (8.5-10.1); CARBON DIOXIDE 32.3 mmol/L (21-32); COR CA(FOR HYPOALB) 10.1 mg/dL (8.5-10.1); CREATININE 1.18 mg/dL (0.55-1.02); MAGNESIUM 1.9 mg/dL (2.0-2.9); POTASSIUM 4.1 mmol/L (3.5-5.1); TOTAL PROTEIN 7.1 g/dL (6.4-8.2)
--- NOTE | 2024-12-07 07:24 | RAD ---
EXAMINATION: CHEST, 1 VIEW HISTORY: sob; . COMPARISON STUDY: Chest x-ray 12/05/2024 TECHNIQUE: Single frontal view of the chest FINDINGS: Lungs are expanded. Subtle bibasilar opacities. Mild cardiac silhouette enlargement. Soft tissue f ullness of the right pulmonary hilum. Cardiac pacer device left chest. Visualized bones appear inta ct. IMPRESSION: Subtle bibasilar opacities. Soft tissue fullness right pulmonary hilum. Consider follow-up CT of the thorax. Mild cardiac silhouette enlargement. THIS IS AN ELECTRONICALLY VERIFIED FINAL REPORT 12/07/2024 7:21 AM - Electronically signed by Aileen Her MD
[2024-12-07] MEDS ORDERED: CONSULT PHARMACY - POTASSIUM & MAGNESIUM XX SCH (08:00)
[2024-12-07] MEDS: MAG-OX TAB PO SCH (09:12)
[2024-12-07] MEDS: SOLU-Medrol 40 MG VIAL IVP SCH ×2 (11:36→15:58)
[2024-12-07] MEDS: LOVENOX INJ 40 MG SYR SC SCH (11:37)
[2024-12-07] MEDS: NovoLIN R (or HumuLIN R) SUBCUT PRN (21:49)
[2024-12-08 06:17] LABS: BASOPHILS % (AUTO) 0.5 % (0.2-1.0); EOSINOPHILS % (AUTO) 0.2 % (0.9-2.9); HEMATOCRIT 30.7 % (36.0-47.0); HEMOGLOBIN 10.6 g/dL (12.0-16.0); LYMPHOCYTES # (AUTO) 0.8 X10^3/uL (1.3-2.9); LYMPHOCYTES % (AUTO) 14.1 % (21.0-51.0); MEAN CORPUSCULAR HEMOGLOBIN 30.2 pg (27.0-34.0); MEAN CORPUSCULAR HGB CONC 34.5 g/dL (33.0-35.0); MEAN CORPUSCULAR VOLUME 87.5 fL (80.0-100.0); MEAN PLATELET VOLUME 7.4 fL (7.4-11.0); MONOCYTES # (AUTO) 0.1 x10^3/uL (0.3-0.8); MONOCYTES % (AUTO) 2.1 % (0.0-13.0); NEUTROPHILS % (AUTO) 83.1 % (42.0-75.0); PLATELET COUNT 257 X10^3/uL (150.0-450.0); RED CELL DISTRIBUTION WIDTH 14.7 % (11.6-16.5)
[2024-12-08 06:27] LABS: ALBUMIN 3.3 g/dL (3.4-5.0); CALCIUM 9.4 mg/dL (8.5-10.1); CARBON DIOXIDE 31.1 mmol/L (21-32); CREATININE 1.3 mg/dL (0.55-1.02); POTASSIUM 4.3 mmol/L (3.5-5.1); TOTAL PROTEIN 7.3 g/dL (6.4-8.2)
[2024-12-08 08:48] LABS: ABG HCO3 36.8 mmol/L (22-26)
[2024-12-08 08:49] LABS: ABG ALLEN TEST POS
[2024-12-08] MEDS: TESSALON PERLES PO PRN (19:08)
[2024-12-09 06:26] LABS: BASOPHILS # (AUTO) 0.1 X10^3/uL (0.0-0.1); BASOPHILS % (AUTO) 1.4 % (0.2-1.0); EOSINOPHILS # (AUTO) 0.1 x10^3/uL (0.0-0.2); EOSINOPHILS % (AUTO) 1.3 % (0.9-2.9); HEMATOCRIT 31.4 % (36.0-47.0); HEMOGLOBIN 10.8 g/dL (12.0-16.0); LYMPHOCYTES # (AUTO) 1.7 X10^3/uL (1.3-2.9); LYMPHOCYTES % (AUTO) 20.3 % (21.0-51.0); MEAN CORPUSCULAR HGB CONC 34.4 g/dL (33.0-35.0); MEAN CORPUSCULAR VOLUME 87.4 fL (80.0-100.0); MEAN PLATELET VOLUME 7.5 fL (7.4-11.0); MONOCYTES # (AUTO) 0.8 x10^3/uL (0.3-0.8); MONOCYTES % (AUTO) 9.7 % (0.0-13.0); NEUTROPHILS # (AUTO) 5.8 x10^3/uL (2.2-4.8); NEUTROPHILS % (AUTO) 67.3 % (42.0-75.0); PLATELET COUNT 288 X10^3/uL (150.0-450.0); RED BLOOD COUNT 3.59 X10^6/uL (3.5-5.4); RED CELL DISTRIBUTION WIDTH 14.6 % (11.6-16.5); WHITE BLOOD COUNT 8.6 X10^3/uL (3.6-10.0)
[2024-12-09 06:49] LABS: ALBUMIN 3.2 g/dL (3.4-5.0); CALCIUM 9.1 mg/dL (8.5-10.1); CARBON DIOXIDE 32.2 mmol/L (21-32); COR CA(FOR HYPOALB) 9.7 mg/dL (8.5-10.1); CREATININE 1.5 mg/dL (0.55-1.02); POTASSIUM 4.2 mmol/L (3.5-5.1); TOTAL PROTEIN 7.2 g/dL (6.4-8.2)
--- NOTE | 2024-12-09 08:04 | RAD ---
EXAMINATION:CHEST, 1 VIEWHISTORY:chf; .COMPARISON STUDY:Chest x-ray 11/29/2024TECHNIQUE:Single frontal view of the chestFINDINGS:Lungs are expanded. Subtle patchy interstitial infiltrates lower lung rey. Mild cardiac silhouette enlargement. Soft tissue fullness right pulmonary hilum. Cardiac pacer device left lower chest. Visualized bones appear intactIMPRESSION:Subtle prominent interstitial markings in the lower lung rey.Mild cardiac silhouette enlargement.Soft tissue fullness right pulmonary hilum.THIS IS AN ELECTRONICALLY VERIFIED FINAL REPORT12/09/2024 8:01 AM - Electronically signed by Aileen Her MD
[2024-12-09 08:21] VITALS: BP 133/65; RESP 18; TEMP 97.1; O2SAT 98
[2024-12-09] MEDS ORDERED: [UNRECOGNIZED DRUG - REMARK] SUBCUT SCH (09:00)
[2024-12-09 09:19] VITALS: PULSE 70
--- NOTE | 2024-12-09 11:36 | RAD ---
EXAM:Portable chestHISTORY:Congestive heart failureCOMPARISON:12/08/2024FINDINGS:The re is a pacemaker present on the left. Heart is mildly enlarged. There is a coronary artery stent present. No congestive heart failure is noted. [place] are normal. Lung rey are free of acute infiltrates. No pleural effusion or pneumothorax identified. Bony thorax is unremarkable.IMPRESSION:Mild cardiomegaly without congestive heart failureNo acute infiltratesTHIS IS AN ELECTRONICALLY VERIFIED FINAL REPORT12/09/2024 11:33 AM - Electronically signed by Jacob Atwood MD
== END 2024-12-09 11:15 | disposition home or self-care (01) ==
LOC: ER 11:46 → MED/SURG 11:46
PROVIDERS: ADMIT Family Medicine; ATTEND Internal Medicine
DX: R51.9 Headache, unspecified; J44.9 Chronic obstructive pulmonary disease, unspecified; Z72.0 Tobacco use; J18.8 Other pneumonia, unspecified organism; E83.42 Hypomagnesemia; Z03.818 Encounter for observation for suspected exposure to other biological agents ruled out; R94.31 Abnormal electrocardiogram [ECG] [EKG]; I11.0 Hypertensive heart disease with heart failure; B97.19 Other enterovirus as the cause of diseases classified elsewhere; R06.02 Shortness of breath; B97.89 Other viral agents as the cause of diseases classified elsewhere; R07.89 Other chest pain; E03.8 Other specified hypothyroidism; I50.43 Acute on chronic combined systolic (congestive) and diastolic (congestive) heart failure; Z66 Do not resuscitate; I25.10 Atherosclerotic heart disease of native coronary artery without angina pectoris; M62.81 Muscle weakness (generalized); Z99.81 Dependence on supplemental oxygen; R26.89 Other abnormalities of gait and mobility; E11.65 Type 2 diabetes mellitus with hyperglycemia; R60.0 Localized edema